=== PATIENT | female | born 1985 | race Caucasian/White ===

== ENCOUNTER → 2022-02-26 14:51 | Outpatient (BNVA) | payer OTHER, SELFPAY | PROVIDERS: PCP Student in an Organized Health Care Education/Training Program; Visit Provider Psychiatry & Neurology Neurology | DX: R56.9 Unspecified convulsions (principal); G35 Multiple sclerosis; F41.9 Anxiety disorder, unspecified | CPT/HCPCS: 99202 ==

== ENCOUNTER 2022-03-16 08:03 | Outpatient (REF) | payer OTHER, SELFPAY ==
--- NOTE | 2022-03-16 08:09 | EEG_ITS ---
This is a 16-channel EEG with an EKG lead. The patient is reported awake during the tracing. Background EEG rhythm is low amplitude fast with no obvious asymmetry or paroxysmal tendency. Photic stimulation does not produce any significant driving. Hyperventilation is not performed. Cardiac lead does not reveal any significant abnormality. No sharp wave spikes or paroxysmal tendency noted. IMPRESSION: Unremarkable EEG. MD LEN Cunha/KENNY / [id number]
== END 2022-03-16 08:04 | disposition home or self-care (01) ==
LOC: HO.NEURO 08:03
PROVIDERS: Visit Provider Psychiatry & Neurology Neurology
DX: G35 Multiple sclerosis (principal); R56.9 Unspecified convulsions
CPT/HCPCS: 95816

== ENCOUNTER → 2022-06-28 12:59 | Outpatient (BNVA) | payer OTHER, SELFPAY | PROVIDERS: PCP Student in an Organized Health Care Education/Training Program; Visit Provider Psychiatry & Neurology Neurology | DX: G47.10 Hypersomnia, unspecified (principal); G35 Multiple sclerosis; R56.9 Unspecified convulsions; F41.9 Anxiety disorder, unspecified | CPT/HCPCS: 99212 ==

== ENCOUNTER → 2022-07-10 16:05 | Outpatient (REF) | payer OTHER, SELFPAY | LOC: HO.SL 16:05 | PROVIDERS: Visit Provider Psychiatry & Neurology Neurology | DX: G47.10 Hypersomnia, unspecified (principal); R06.83 Snoring | CPT/HCPCS: 95806 ==